=== PATIENT | male | born 1945 | race African-American/Black ===

== ENCOUNTER → 2016-10-17 | Outpatient (CLI) | payer MEDICARE ==
[2016-10-17 08:36] LABS: HEMATOCRIT 29.5 % (37.9-51.0); HEMOGLOBIN 9.4 g/dL (13.5-17.0); HGB HCT DIFFERENCE -1.3; MEAN CORPUSCULAR HEMOGLOBIN 26.5 pg (27.0-33.4); MEAN CORPUSCULAR HGB CONC 31.8 g/dL (32.0-36.0); MEAN CORPUSCULAR VOLUME 83 fl (80-97); RED BLOOD COUNT 3.54 10^6/uL (4.35-5.55); RED CELL DISTRIBUTION WIDTH 14.5 % (11.5-14.0); WHITE BLOOD COUNT 7.8 10^3/uL (4.0-10.5)
[2016-10-17 08:59] LABS: ANION GAP 13 (5-19); BLOOD UREA NITROGEN 39 mg/dL (7-20); CALCIUM 8.6 mg/dL (8.4-10.2); CARBON DIOXIDE 23 mmol/L (22-30); CHLORIDE 108 mmol/L (98-107); CREATININE RESULT 4.01 mg/dL (0.52-1.25); GLUCOSE 60 mg/dL (75-110); PHOSPHORUS 5.9 mg/dL (2.5-4.5); POTASSIUM 5.4 mmol/L (3.6-5.0); SODIUM 143.9 mmol/L (137-145)
== END ==
LOC: LAB 08:21
PROVIDERS: ATTEND Internal Medicine Nephrology
DX: E11.22 Type 2 diabetes mellitus with diabetic chronic kidney disease (principal); I12.9 Hypertensive chronic kidney disease with stage 1 through stage 4 chronic kidney disease, or unspecified chronic kidney disease; N18.4 Chronic kidney disease, stage 4 (severe); E87.5 Hyperkalemia
CPT/HCPCS: 36415; 80048; 82728; 83540; 83550; 83970; 84100; 85027

== ENCOUNTER → 2016-10-19 | Outpatient (CLI) | payer MEDICARE ==
[2016-10-19 08:00] LABS: ABSOLUTE BASOPHILS # (AUTO) 0.1 10^3/uL (0.0-0.2); ABSOLUTE EOSINOPHILS # (AUTO) 0.3 10^3/uL (0.0-0.6); ABSOLUTE LYMPHOCYTES (AUTO) 3.2 10^3/uL (0.5-4.7); ABSOLUTE MONOCYTES (AUTO) 0.8 10^3/uL (0.1-1.4); ABSOLUTE NEUT (AUTO) 4.1 10^3/uL (1.7-8.2); BASOPHILS % (AUTO) 0.6 % (0-2); EOSINOPHILS % (AUTO) 3.8 % (0-6); HEMATOCRIT 29.8 % (37.9-51.0); HEMOGLOBIN 9.5 g/dL (13.5-17.0); HGB HCT DIFFERENCE -1.3; LYMPHOCYTES % (AUTO) 37.7 % (13-45); MEAN CORPUSCULAR HEMOGLOBIN 26.7 pg (27.0-33.4); MEAN CORPUSCULAR HGB CONC 31.8 g/dL (32.0-36.0); MEAN CORPUSCULAR VOLUME 84 fl (80-97); MONOCYTES % (AUTO) 9.4 % (3-13); RED BLOOD COUNT 3.54 10^6/uL (4.35-5.55); RED CELL DISTRIBUTION WIDTH 14.7 % (11.5-14.0); SEGMENTED NEUTROPHILS % (AUTO) 48.5 % (42-78); WHITE BLOOD COUNT 8.4 10^3/uL (4.0-10.5)
[2016-10-19 08:23] LABS: ALANINE AMINOTRANSFERASE 39 U/L (21-72); ALBUMIN 4.4 g/dL (3.5-5.0); ALKALINE PHOSPHATASE 142 U/L (38-126); ANION GAP 15 (5-19); ASPARTATE AMINO TRANSFERASE 48 U/L (17-59); BILIRUBIN,TOTAL 0.5 mg/dL (0.2-1.3); BLOOD UREA NITROGEN 44 mg/dL (7-20); CALCIUM 8.8 mg/dL (8.4-10.2); CARBON DIOXIDE 20 mmol/L (22-30); CHLORIDE 108 mmol/L (98-107); CREATININE RESULT 3.94 mg/dL (0.52-1.25); GLUCOSE 131 mg/dL (75-110); POTASSIUM 5.5 mmol/L (3.6-5.0); SODIUM 142.9 mmol/L (137-145)
[2016-10-19 08:26] LABS: C-REACTIVE PROTEIN < 5.0 mg/L (<10.0)
[2016-10-19 08:49] LABS: ERYTHROCYTE SEDIMENTATION RATE 63 mm/hr (0-20)
== END ==
LOC: LAB 07:24
PROVIDERS: ATTEND Nurse Practitioner Family
DX: E11.52 Type 2 diabetes mellitus with diabetic peripheral angiopathy with gangrene (principal); E11.621 Type 2 diabetes mellitus with foot ulcer; L97.522 Non-pressure chronic ulcer of other part of left foot with fat layer exposed
CPT/HCPCS: 36415; 71020; 80053; 83036; 85025; 85652; 86140

== ENCOUNTER → 2016-10-25 | Outpatient (CLI) | payer MEDICARE ==
--- NOTE | 2016-10-25 16:39 | XCELERA REPORT ---
[address] [address] Lower Extremity Arterial Evaluation Name: RICOVERONICA JR Age: 71 yrs Gender: Male : 1945 Patient Status: Outpatient Patient Location: Study Date: 10/25/2016 01:16 PM Procedure: A color flow and duplex scan of the lower extremity arteries was performed bilaterally with velocity and waveform anaylsis. Ankle brachial indicies performed. Reason For Study: ULCER Ordering Physician: RAFIQ BARON Performed By: Sixto Godoy Measurements and Calculations Right Left DISTRICT SUPERINTENDENT PSV 115.5 117.3 cm/sec Prox PFA PSV -71.1 -105.6 cm/sec Dist SFA PSV -108.1 -109.6 cm/sec Prox Pop A PSV 99.3 101.3 cm/sec Dist VIDAL PSV 94.9 98.7 cm/sec Dist RADIO PROGRAM CHECKER PSV 125.7 132.0 cm/sec Zaid Pedis PSV 101.8 106.4 cm/sec Right Side Arterial Evaluation Normal velocity, waveform and triphasic flow are present, from the Common Femoral artery down to the infrageniculate vessels. The ankle-brachial index was not obtainable, due to non compressibility. 0 % stenosis is noted. Left Side Arterial Evaluation Normal velocity, waveform and triphasic flow are present, from the Common Femoral artery down to the infrageniculate vessels. The ankle-brachial index was not obtainable, due to non compressibility. 0 % stenosis is noted. Interpretation Summary No hemodynamically significant lesions in the bilateral lower extremities, on duplex imaging, at rest. With non compressible vessels, no significant hemodynamic compromise, arteriosclerosis is probable. : RAFIQ BARON [place]
--- NOTE | 2016-10-30 11:38 | XCELERA REPORT ---
[address] [address] Lower Extremity Venous Evaluation Name: VERONICA GÓMEZ JR Age: 71 yrs Gender: Male : 1945 Patient Status: Outpatient Patient Location: Study Date: 10/25/2016 01:26 PM Procedure: A bilateral duplex scan of the lower extremity veins was performed. The evaluation included responses to compression and other maneuvers with patient in the supine and standing positions to assess venous insufficiency. Reason For Study: ULCER Ordering Physician: RAFIQ BARON Performed By: Sixto Godoy Right Sided Venous Evaluation Deep venous system evaluatiion shows patent veins with no obstruction or significant reflux identified. Sapheno Femoral junction: no reflux. Femoral vein reflux: no reflux. Greater Saphenous vein, Proximal thigh: reflux: no reflux. Greater Saphenous vein, Distal thigh: reflux:no reflux. Greater Saphenous vein, Proximal below knee: reflux:no reflux. No significant Perforators identified. Left Sided Venous Evaluation Deep venous system evaluatiion shows patent veins with significant reflux identified. In the Common Femoral vein, 4 sconds reflux. Sapheno Femoral junction: no reflux. Femoral vein reflux: no reflux. Greater Saphenous vein, Proximal thigh: reflux: no reflux. Greater Saphenous vein, Distal thigh: reflux:no reflux. Greater Saphenous vein, Proximal below knee: reflux:no reflux. No significant Perforators identified. Interpretation Summary No duplex evidence of DVT or obstruction in the bilateral lower extremities. Very limited, left sided deep reflux only. : RAFIQ BARON [place]
== END ==
LOC: SP 12:48
PROVIDERS: ATTEND Nurse Practitioner Family
DX: E11.621 Type 2 diabetes mellitus with foot ulcer (principal); L97.522 Non-pressure chronic ulcer of other part of left foot with fat layer exposed
CPT/HCPCS: 93925; 93970

== ENCOUNTER → 2016-12-08 | Outpatient (CLI) | payer MEDICARE ==
[2016-12-08 08:33] LABS: HEMOGLOBIN 10.4 g/dL (13.5-17.0); HGB HCT DIFFERENCE -0.8; MEAN CORPUSCULAR HEMOGLOBIN 26.5 pg (27.0-33.4); MEAN CORPUSCULAR HGB CONC 32.4 g/dL (32.0-36.0); MEAN CORPUSCULAR VOLUME 82 fl (80-97); RED BLOOD COUNT 3.91 10^6/uL (4.35-5.55); RED CELL DISTRIBUTION WIDTH 14.6 % (11.5-14.0); WHITE BLOOD COUNT 7.1 10^3/uL (4.0-10.5)
[2016-12-08 09:12] LABS: ANION GAP 15 (5-19); BLOOD UREA NITROGEN 45 mg/dL (7-20); CALCIUM 9.3 mg/dL (8.4-10.2); CARBON DIOXIDE 22 mmol/L (22-30); CHLORIDE 105 mmol/L (98-107); CREATININE RESULT 3.17 mg/dL (0.52-1.25); GLUCOSE 119 mg/dL (75-110); PHOSPHORUS 4.8 mg/dL (2.5-4.5); POTASSIUM 4.3 mmol/L (3.6-5.0); SODIUM 141.9 mmol/L (137-145)
== END ==
LOC: LAB 08:19
PROVIDERS: ATTEND Internal Medicine Nephrology
DX: I12.9 Hypertensive chronic kidney disease with stage 1 through stage 4 chronic kidney disease, or unspecified chronic kidney disease (principal); N18.4 Chronic kidney disease, stage 4 (severe); E87.5 Hyperkalemia; E11.9 Type 2 diabetes mellitus without complications
CPT/HCPCS: 36415; 80048; 83970; 84100; 85027

== ENCOUNTER → 2017-03-12 | Outpatient (CLI) | payer MEDICARE ==
[2017-03-12 08:22] LABS: HEMATOCRIT 29.2 % (37.9-51.0); HEMOGLOBIN 9.3 g/dL (13.5-17.0); HGB HCT DIFFERENCE -1.3; MEAN CORPUSCULAR HEMOGLOBIN 26.7 pg (27.0-33.4); MEAN CORPUSCULAR VOLUME 84 fl (80-97); RED BLOOD COUNT 3.49 10^6/uL (4.35-5.55); RED CELL DISTRIBUTION WIDTH 14.2 % (11.5-14.0)
[2017-03-12 08:39] LABS: APPEARANCE,URINE CLEAR; BILIRUBIN,URINE NEGATIVE (NEGATIVE); GLUCOSE, URINE NEGATIVE (NEGATIVE); KETONES,URINE NEGATIVE (NEGATIVE); LEUKOCYTE ESTERASE,URINE NEGATIVE (NEGATIVE); NITRITE,URINE NEGATIVE (NEGATIVE); PROTEIN,URINE 100 mg/dL (NEGATIVE); URINE SPECIFIC GRAVITY 1.017; UROBILINOGEN,URINE NEGATIVE mg/dL (<2.0)
[2017-03-12 08:42] LABS: ANION GAP 14 (5-19); BLOOD UREA NITROGEN 52 mg/dL (7-20); CALCIUM 8.7 mg/dL (8.4-10.2); CARBON DIOXIDE 24 mmol/L (22-30); CHLORIDE 104 mmol/L (98-107); CREATININE RESULT 3.65 mg/dL (0.52-1.25); GLUCOSE 81 mg/dL (75-110); PHOSPHORUS 4.8 mg/dL (2.5-4.5); POTASSIUM 4.7 mmol/L (3.6-5.0); SODIUM 141.5 mmol/L (137-145)
== END ==
LOC: LAB 08:06
PROVIDERS: ATTEND Internal Medicine Nephrology
DX: N18.4 Chronic kidney disease, stage 4 (severe) (principal); R80.9 Proteinuria, unspecified; E87.6 Hypokalemia; D64.9 Anemia, unspecified
CPT/HCPCS: 36415; 80048; 81001; 83970; 84100; 85027

== ENCOUNTER 2017-04-02 12:55 | Emergency (ER) | payer MEDICARE ==
--- NOTE | 2017-04-02 13:59 | ER Document Report ---
ED Medical Screen (RME) - General Chief Complaint: Foot Pain Stated Complaint: LEFT FOOT PAIN Time Seen by Provider: 04/02/17 13:54 Notes: Patient is a 71-year-old male, past medical history CKD, DM, chronic left foot ulcer pain, and with worsening blisters and these coronation of his left foot after he popped the blisters. He was seen wound care for a foot ulcer, but now noticed worsening wounds. Denies discharge, fevers or injury. PE: left foot with desquamation of the dorsal surface of his first, third, fourth and fifth toes down to tendons, no discharge I have greeted and performed a rapid initial assessment of this patient. A comprehensive ED assessment and evaluation of the patient, analysis of test results and completion of the medical decision making process will be conducted by additional ED providers. TRAVEL OUTSIDE OF THE [place] IN LAST 30 DAYS: No - Related Data Allergies/Adverse Reactions: No Known Allergies Allergy (Verified 04/02/17 12:59) Past Medical History Neurological Medical History: Denies: Hx Seizures Renal/ Medical History: Denies: Hx Peritoneal Dialysis Physical Exam - Vital signs Vitals: Temp Pulse Resp BP Pulse Ox 98.3 F 93 18 174/89 H 96 04/02/17 12:59 04/02/17 12:59 04/02/17 12:59 04/02/17 12:59 04/02/17 12:59 Course - Vital Signs Vital signs: Temp Pulse Resp BP Pulse Ox 98.3 F 93 18 174/89 H 96 04/02/17 12:59 04/02/17 12:59 04/02/17 12:59 04/02/17 12:59 04/02/17 12:59
[2017-04-02 14:42] LABS: ABSOLUTE EOSINOPHILS # (AUTO) 0.8 10^3/uL (0.0-0.6); ABSOLUTE LYMPHOCYTES (AUTO) 2.2 10^3/uL (0.5-4.7); ABSOLUTE MONOCYTES (AUTO) 0.9 10^3/uL (0.1-1.4); ABSOLUTE NEUT (AUTO) 5.2 10^3/uL (1.7-8.2); BASOPHILS % (AUTO) 0.5 % (0-2); EOSINOPHILS % (AUTO) 9.1 % (0-6); HEMATOCRIT 26.6 % (37.9-51.0); HEMOGLOBIN 8.6 g/dL (13.5-17.0); HGB HCT DIFFERENCE -0.8; LYMPHOCYTES % (AUTO) 23.8 % (13-45); MEAN CORPUSCULAR HEMOGLOBIN 26.7 pg (27.0-33.4); MEAN CORPUSCULAR HGB CONC 32.1 g/dL (32.0-36.0); MEAN CORPUSCULAR VOLUME 83 fl (80-97); RED CELL DISTRIBUTION WIDTH 14.3 % (11.5-14.0); SEGMENTED NEUTROPHILS % (AUTO) 56.6 % (42-78); WHITE BLOOD COUNT 9.2 10^3/uL (4.0-10.5)
--- NOTE | 2017-04-02 14:57 | ER Document Report ---
ED Extremity Problem, Lower - General Chief Complaint: Foot Pain Stated Complaint: LEFT FOOT PAIN Time Seen by Provider: 04/02/17 13:54 Mode of Arrival: Ambulatory Information source: Patient TRAVEL OUTSIDE OF THE [place] IN LAST 30 DAYS: No - HPI Patient complains to provider of: Swelling Location: Foot Occurred: Other - several months Onset/Duration: Gradual Quality of pain: No pain Notes: Patient is a 71-year-old male with a history of chronic kidney disease, and diabetes, who presents to the emergency room complaining of chronic nonhealing wounds to his left foot, he has a callus on the plantar surface of his left great toe, he has been seen at the wound care clinic for this multiple times in the past, he states that they have debrided it multiple times, and about a month ago he stopped going because he did not feel as though he is getting any better, over the past week to week and a half he developed some blisters on the dorsal surface of his toes and distal foot, he states he used a needle to pop the blisters, they drained clear fluid, since then he has had mild erythema and swelling to this area, he denies any active drainage, no fevers, denies any pain , but he does have decreased sensation to the distal extremity related to diabetic neuropathy - Related Data Allergies/Adverse Reactions: No Known Allergies Allergy (Verified 04/02/17 12:59) Past Medical History - General Information source: Patient - Social History Smoking Status: Never Smoker Family History: Reviewed & Not Pertinent Patient has suicidal ideation: No Patient has homicidal ideation: No Neurological Medical History: Denies: Hx Seizures Renal/ Medical History: Denies: Hx Peritoneal Dialysis Review of Systems - Review of Systems Constitutional: No symptoms reported EENT: No symptoms reported Cardiovascular: No symptoms reported Respiratory: No symptoms reported Gastrointestinal: No symptoms reported Genitourinary: No symptoms reported Male Genitourinary: No symptoms reported Musculoskeletal: No symptoms reported Skin: See HPI Hematologic/Lymphatic: No symptoms reported Neurological/Psychological: No symptoms reported -: Yes All other systems reviewed and negative Physical Exam - Vital signs Vitals: Temp Pulse Resp BP Pulse Ox 98.3 F 93 18 174/89 H 96 04/02/17 12:59 04/02/17 12:59 04/02/17 12:59 04/02/17 12:59 04/02/17 12:59 Interpretation: Hypertensive - General General appearance: Appears well, Alert In distress: None - HEENT Head: Normocephalic, Atraumatic Eyes: Normal Pupils: PERRL - Respiratory Respiratory status: No respiratory distress Chest status: Nontender Breath sounds: Normal Chest palpation: Normal - Cardiovascular Rhythm: Regular Heart sounds: Normal auscultation Murmur: No - Abdominal Inspection: Normal Distension: No distension Bowel sounds: Normal Tenderness: Nontender Organomegaly: No organomegaly - Back Back: Normal, Nontender - Extremities General upper extremity: Normal inspection, Nontender, Normal color, Normal ROM , Normal temperature General lower extremity: Normal ROM, Normal temperature, Normal weight bearing. No: Kaylene's sign Foot: Other - With pinkish colored discoloration to the dorsal surface of the first through fourth toes, as well as a 2 x 4 cm area on the dorsal surface of the foot over the distal metatarsals, these are the areas that he stated he had previously had blisters which he popped with a needle and debrided himself at home, there is no tenderness, no active drainage, there is brisk capillary refill with 2+ DP pulses, he does have a callus with small area of central necrosis on the plantar surface of the great toe - Neurological Neuro grossly intact: Yes Cognition: Normal Orientation: AAOx4 Abdulaziz Coma Scale Eye Opening: Spontaneous Ararat Coma Scale Verbal: Oriented Ararat Coma Scale Motor: Obeys Commands Abdulaziz Coma Scale Total: 15 Speech: Normal Motor strength normal: LUE, RUE, LLE, RLE Sensory: Normal - Psychological Associated symptoms: Normal affect, Normal mood - Skin Skin Temperature: Warm Skin Moisture: Dry Skin Color: Normal Course - Re-evaluation Re-evalutation: 04/02/17 18:14 Imaging findings were discussed with patient at bedside which are relatively unremarkable, he is noted to have chronic kidney disease, no leukocytosis, stable vital signs, wound care was provided to his left foot, he was advised to follow-up with his primary care provider in 2-3 days or return if any additional concerns, patient and at bedside acknowledge understanding and agreement with this plan - Vital Signs Vital signs: Temp Pulse Resp BP Pulse Ox 97.6 F 103 H 20 175/94 H 96 04/02/17 15:26 04/02/17 15:26 04/02/17 15:26 04/02/17 15:26 04/02/17 15:26 - Laboratory Result Diagrams: 04/02/17 14:19 04/02/17 14:19 Laboratory results interpreted by me: 04/02/17 04/02/17 14:19 14:19 RBC 3.20 L Hgb 8.6 L Hct 26.6 L MCH 26.7 L RDW 14.3 H Plt Count 588 H Eosinophils % 9.1 H Absolute Eosinophils 0.8 H Potassium 5.4 H BUN 37 H Creatinine 3.18 H Est GFR ( Amer) 23 L Est GFR (Non-Af Amer) 19 L Glucose 147 H - Diagnostic Test Radiology reviewed: Image reviewed, Reports reviewed Discharge - Discharge Clinical Impression: Diabetic foot ulcers Qualifiers: Diabetic foot ulcer location: toe Diabetes mellitus type: type 2 Laterality: left Non-pressure ulcer stage: limited to breakdown of skin Qualified Code(s): E11.621 - Type 2 diabetes mellitus with foot ulcer Condition: Stable Disposition: HOME, SELF-CARE Instructions: Foot or Leg Ulcer ([facility]) Additional Instructions: Follow up with your primary care provider in one to 2 days. Return to the emergency room immediately if symptoms worsen or any additional concerns. Prescriptions: Doxycycline Hyclate 100 mg PO BID #20 capsule Referrals: ADY WADE MD [Primary Care Provider] - Follow up as needed
[2017-04-02 15:02] LABS: ALANINE AMINOTRANSFERASE 37 U/L (21-72); ALBUMIN 3.7 g/dL (3.5-5.0); ALKALINE PHOSPHATASE 120 U/L (38-126); ANION GAP 14 (5-19); ASPARTATE AMINO TRANSFERASE 27 U/L (17-59); BILIRUBIN,DIRECT 0.3 mg/dL (0.0-0.4); BILIRUBIN,TOTAL 0.3 mg/dL (0.2-1.3); BLOOD UREA NITROGEN 37 mg/dL (7-20); CALCIUM 8.6 mg/dL (8.4-10.2); CARBON DIOXIDE 22 mmol/L (22-30); CHLORIDE 104 mmol/L (98-107); CREATININE RESULT 3.18 mg/dL (0.52-1.25); GLUCOSE 147 mg/dL (75-110); POTASSIUM 5.4 mmol/L (3.6-5.0); SODIUM 140.3 mmol/L (137-145); TOTAL PROTEIN 7.6 g/dL (6.3-8.2)
--- NOTE | 2017-04-02 15:08 | RADIOLOGY REPORT (SQ) ---
EXAM DESCRIPTION: FOOT LEFT COMPLETE COMPLETED DATE/TIME: 04/02/2017 2:59 pm REASON FOR STUDY: left foot pain COMPARISON: 10/19/2016 NUMBER OF VIEWS: Three views. TECHNIQUE: AP, lateral and oblique radiographic images acquired of the left foot. LIMITATIONS: None. FINDINGS: MINERALIZATION: Normal. BONES: No acute fracture or dislocation. No worrisome bone lesions. JOINTS: No effusions. SOFT TISSUES: No foreign body. OTHER: No other significant finding. IMPRESSION: No evidence of osteomyelitis. TECHNICAL DOCUMENTATION: JOB ID: [id number]- All Rights Reserved
[2017-04-02] MEDS ORDERED: DOXYCYCLINE HYCLATE 100 MG TABLET PO ONE (15:13)
[2017-04-02 15:32] VITALS: BP 175/94
== END 2017-04-02 15:30 | disposition home or self-care (01) ==
LOC: ER 12:55
DX: E11.621 Type 2 diabetes mellitus with foot ulcer (principal); M79.672 Pain in left foot; E11.22 Type 2 diabetes mellitus with diabetic chronic kidney disease; N18.9 Chronic kidney disease, unspecified
CPT/HCPCS: 99283; 36415; 87040; 85025; 80053; 83605; 73630; A9270

== ENCOUNTER → 2017-06-11 | Outpatient (CLI) | payer MEDICARE ==
[2017-06-11 08:40] LABS: HEMATOCRIT 30.1 % (37.9-51.0); HEMOGLOBIN 9.7 g/dL (13.5-17.0); MEAN CORPUSCULAR HGB CONC 32.1 g/dL (32.0-36.0); MEAN CORPUSCULAR VOLUME 84 fl (80-97); RED BLOOD COUNT 3.57 10^6/uL (4.35-5.55); RED CELL DISTRIBUTION WIDTH 15.1 % (11.5-14.0); WHITE BLOOD COUNT 6.5 10^3/uL (4.0-10.5)
[2017-06-11 08:42] LABS: APPEARANCE,URINE CLEAR; BILIRUBIN,URINE NEGATIVE (NEGATIVE); GLUCOSE, URINE NEGATIVE (NEGATIVE); KETONES,URINE NEGATIVE (NEGATIVE); LEUKOCYTE ESTERASE,URINE TRACE (NEGATIVE); NITRITE,URINE NEGATIVE (NEGATIVE); PROTEIN,URINE 100 mg/dL (NEGATIVE); URINE SPECIFIC GRAVITY 1.014; UROBILINOGEN,URINE NEGATIVE mg/dL (<2.0)
[2017-06-11 09:07] LABS: ANION GAP 13 (5-19); BLOOD UREA NITROGEN 39 mg/dL (7-20); CALCIUM 9.4 mg/dL (8.4-10.2); CARBON DIOXIDE 24 mmol/L (22-30); CHLORIDE 105 mmol/L (98-107); CREATININE RESULT 3.05 mg/dL (0.52-1.25); GLUCOSE 95 mg/dL (75-110); MAGNESIUM 2.5 mg/dL (1.6-2.3); PHOSPHORUS 5.2 mg/dL (2.5-4.5); POTASSIUM 4.8 mmol/L (3.6-5.0); SODIUM 142.3 mmol/L (137-145)
[2017-06-11 09:15] LABS: URINE CREATININE 215.9 mg/dL (22-328); URINE PROTEIN 147.7 mg/dL (<12)
== END ==
LOC: LAB 08:09
PROVIDERS: ATTEND Internal Medicine Nephrology
DX: N18.4 Chronic kidney disease, stage 4 (severe) (principal); D64.9 Anemia, unspecified; E87.5 Hyperkalemia
CPT/HCPCS: 36415; 80048; 81001; 82570; 82728; 83540; 83550; 83735; 83970; 84100; 84156; 84443; 85027

== ENCOUNTER → 2017-09-04 | Outpatient (CLI) | payer MEDICARE ==
[2017-09-04 09:08] LABS: HEMATOCRIT 26.1 % (37.9-51.0); HEMOGLOBIN 8.5 g/dL (13.5-17.0); HGB HCT DIFFERENCE -0.6; MEAN CORPUSCULAR HGB CONC 32.8 g/dL (32.0-36.0); MEAN CORPUSCULAR VOLUME 82 fl (80-97); RED BLOOD COUNT 3.16 10^6/uL (4.35-5.55); RED CELL DISTRIBUTION WIDTH 15.7 % (11.5-14.0); WHITE BLOOD COUNT 5.6 10^3/uL (4.0-10.5)
[2017-09-04 09:26] LABS: APPEARANCE,URINE CLEAR; BILIRUBIN,URINE NEGATIVE (NEGATIVE); GLUCOSE, URINE NEGATIVE (NEGATIVE); KETONES,URINE NEGATIVE (NEGATIVE); LEUKOCYTE ESTERASE,URINE NEGATIVE (NEGATIVE); NITRITE,URINE NEGATIVE (NEGATIVE); PROTEIN,URINE >=500 mg/dL (NEGATIVE); URINE SPECIFIC GRAVITY 1.014; UROBILINOGEN,URINE NEGATIVE mg/dL (<2.0)
[2017-09-04 09:40] LABS: BACTERIA,URINE 1+ /HPF; WBC,URINE 0-1 /HPF
[2017-09-04 09:46] LABS: ANION GAP 14 (5-19); BLOOD UREA NITROGEN 48 mg/dL (7-20); CARBON DIOXIDE 22 mmol/L (22-30); CHLORIDE 107 mmol/L (98-107); CREATININE RESULT 3.11 mg/dL (0.52-1.25); GLUCOSE 145 mg/dL (75-110); PHOSPHORUS 5.1 mg/dL (2.5-4.5); POTASSIUM 4.6 mmol/L (3.6-5.0); SODIUM 142.6 mmol/L (137-145)
[2017-09-04 09:58] LABS: URINE PROTEIN 152.2 mg/dL (<12)
== END ==
LOC: LAB 08:50
PROVIDERS: ATTEND Internal Medicine Nephrology
DX: N18.4 Chronic kidney disease, stage 4 (severe) (principal); E87.5 Hyperkalemia; D64.9 Anemia, unspecified; R50.9 Fever, unspecified
CPT/HCPCS: 36415; 80048; 81001; 82570; 83970; 84100; 84156; 85027

== ENCOUNTER → 2017-09-28 | Outpatient (CLI) | payer MEDICARE ==
[2017-09-28 08:30] LABS: HEMATOCRIT 28.2 % (37.9-51.0); MEAN CORPUSCULAR HEMOGLOBIN 26.4 pg (27.0-33.4); MEAN CORPUSCULAR VOLUME 82 fl (80-97); PLATELET COUNT 475 10^3/uL (150-450); RED BLOOD COUNT 3.43 10^6/uL (4.35-5.55); RED CELL DISTRIBUTION WIDTH 16.2 % (11.5-14.0); WHITE BLOOD COUNT 7.8 10^3/uL (4.0-10.5)
[2017-09-28 08:53] LABS: ANION GAP 14 (5-19); BLOOD UREA NITROGEN 48 mg/dL (7-20); CALCIUM 9.3 mg/dL (8.4-10.2); CARBON DIOXIDE 21 mmol/L (22-30); CHLORIDE 107 mmol/L (98-107); GLUCOSE 92 mg/dL (75-110); IRON(TIBC) 48.4 ug/dL (49-181); POTASSIUM 4.8 mmol/L (3.6-5.0); SODIUM 141.7 mmol/L (137-145)
== END ==
LOC: LAB 08:16
PROVIDERS: ATTEND Internal Medicine Nephrology
DX: I12.9 Hypertensive chronic kidney disease with stage 1 through stage 4 chronic kidney disease, or unspecified chronic kidney disease (principal); N18.4 Chronic kidney disease, stage 4 (severe); R80.9 Proteinuria, unspecified; E11.9 Type 2 diabetes mellitus without complications; E87.5 Hyperkalemia; D64.9 Anemia, unspecified
CPT/HCPCS: 36415; 80048; 82728; 83540; 83550; 84443; 85027

== ENCOUNTER → 2018-01-17 | Outpatient (CLI) | payer MEDICARE ==
[2018-01-17 08:21] LABS: HEMOGLOBIN 10.7 g/dL (13.5-17.0); MEAN CORPUSCULAR HEMOGLOBIN 26.8 pg (27.0-33.4); MEAN CORPUSCULAR HGB CONC 32.5 g/dL (32.0-36.0); MEAN CORPUSCULAR VOLUME 83 fl (80-97); PLATELET COUNT 377 10^3/uL (150-450); RED CELL DISTRIBUTION WIDTH 15.5 % (11.5-14.0)
[2018-01-17 08:47] LABS: ANION GAP 14 (5-19); BLOOD UREA NITROGEN 56 mg/dL (7-20); CALCIUM 9.3 mg/dL (8.4-10.2); CARBON DIOXIDE 20 mmol/L (22-30); CHLORIDE 108 mmol/L (98-107); GLUCOSE 98 mg/dL (75-110); PHOSPHORUS 5.9 mg/dL (2.5-4.5); POTASSIUM 5.2 mmol/L (3.6-5.0); SODIUM 142.2 mmol/L (137-145)
== END ==
LOC: LAB 08:05
PROVIDERS: ATTEND Internal Medicine Nephrology
DX: N18.4 Chronic kidney disease, stage 4 (severe) (principal); D64.9 Anemia, unspecified; R80.9 Proteinuria, unspecified
CPT/HCPCS: 36415; 80048; 83970; 84100; 85027

== ENCOUNTER → 2018-05-20 | Outpatient (CLI) | payer MEDICARE ==
[2018-05-20 09:21] LABS: HEMATOCRIT 29.6 % (37.9-51.0); HEMOGLOBIN 9.8 g/dL (13.5-17.0); MEAN CORPUSCULAR HEMOGLOBIN 27.3 pg (27.0-33.4); MEAN CORPUSCULAR VOLUME 83 fl (80-97); PLATELET COUNT 386 10^3/uL (150-450); RED BLOOD COUNT 3.58 10^6/uL (4.35-5.55); RED CELL DISTRIBUTION WIDTH 13.8 % (11.5-14.0); WHITE BLOOD COUNT 6.9 10^3/uL (4.0-10.5)
[2018-05-20 09:29] LABS: APPEARANCE,URINE SLIGHTLY-CLOUDY; BILIRUBIN,URINE NEGATIVE (NEGATIVE); COLOR,URINE YELLOW; GLUCOSE, URINE NEGATIVE (NEGATIVE); KETONES,URINE NEGATIVE (NEGATIVE); LEUKOCYTE ESTERASE,URINE SMALL (NEGATIVE); NITRITE,URINE NEGATIVE (NEGATIVE); PROTEIN,URINE 100 mg/dL (NEGATIVE); URINE SPECIFIC GRAVITY 1.017; UROBILINOGEN,URINE NEGATIVE mg/dL (<2.0)
[2018-05-20 09:51] LABS: ANION GAP 12 (5-19); BLOOD UREA NITROGEN 50 mg/dL (7-20); CARBON DIOXIDE 22 mmol/L (22-30); CHLORIDE 109 mmol/L (98-107); GLUCOSE 135 mg/dL (75-110); IRON(TIBC) 49.3 ug/dL (49-181); PHOSPHORUS 4.8 mg/dL (2.5-4.5); POTASSIUM 4.9 mmol/L (3.6-5.0); SODIUM 143.2 mmol/L (137-145)
== END ==
LOC: LAB 08:54
PROVIDERS: ATTEND Internal Medicine Nephrology
DX: N18.4 Chronic kidney disease, stage 4 (severe) (principal); D64.9 Anemia, unspecified; E87.5 Hyperkalemia; R80.9 Proteinuria, unspecified
CPT/HCPCS: 36415; 80048; 81001; 82728; 83540; 83550; 83970; 84100; 85027

== ENCOUNTER → 2018-09-10 | Outpatient (CLI) | payer MEDICARE ==
[2018-09-10 09:20] LABS: HEMATOCRIT 31.2 % (37.9-51.0); HEMOGLOBIN 10.1 g/dL (13.5-17.0); MEAN CORPUSCULAR HEMOGLOBIN 26.4 pg (27.0-33.4); MEAN CORPUSCULAR HGB CONC 32.4 g/dL (32.0-36.0); MEAN CORPUSCULAR VOLUME 82 fl (80-97); PLATELET COUNT 386 10^3/uL (150-450); RED BLOOD COUNT 3.83 10^6/uL (4.35-5.55); RED CELL DISTRIBUTION WIDTH 15.5 % (11.5-14.0); WHITE BLOOD COUNT 5.4 10^3/uL (4.0-10.5)
[2018-09-10 09:25] LABS: APPEARANCE,URINE CLOUDY; BILIRUBIN,URINE NEGATIVE (NEGATIVE); COLOR,URINE YELLOW; GLUCOSE, URINE NEGATIVE (NEGATIVE); KETONES,URINE NEGATIVE (NEGATIVE); LEUKOCYTE ESTERASE,URINE MODERATE (NEGATIVE); NITRITE,URINE NEGATIVE (NEGATIVE); PROTEIN,URINE >=500 mg/dL (NEGATIVE); URINE SPECIFIC GRAVITY 1.015; UROBILINOGEN,URINE NEGATIVE mg/dL (<2.0)
[2018-09-10 09:39] LABS: ANION GAP 12 (5-19); BLOOD UREA NITROGEN 39 mg/dL (7-20); CALCIUM 9.2 mg/dL (8.4-10.2); CARBON DIOXIDE 23 mmol/L (22-30); CHLORIDE 108 mmol/L (98-107); GLUCOSE 136 mg/dL (75-110); PHOSPHORUS 4.7 mg/dL (2.5-4.5); POTASSIUM 4.4 mmol/L (3.6-5.0); SODIUM 143.4 mmol/L (137-145)
== END ==
LOC: LAB 08:51
PROVIDERS: ATTEND Internal Medicine Nephrology
DX: N18.4 Chronic kidney disease, stage 4 (severe) (principal); D64.9 Anemia, unspecified; E87.5 Hyperkalemia; R80.9 Proteinuria, unspecified
CPT/HCPCS: 36415; 80048; 81001; 83970; 84100; 85027

== ENCOUNTER → 2019-02-04 | Outpatient (CLI) | payer MEDICARE ==
[2019-02-04 08:46] LABS: ABSOLUTE EOSINOPHILS # (AUTO) 0.2 10^3/uL (0.0-0.6); ABSOLUTE LYMPHOCYTES (AUTO) 2.8 10^3/uL (0.5-4.7); ABSOLUTE MONOCYTES (AUTO) 0.8 10^3/uL (0.1-1.4); ABSOLUTE NEUT (AUTO) 3.5 10^3/uL (1.7-8.2); BASOPHILS % (AUTO) 0.6 % (0-2); EOSINOPHILS % (AUTO) 3.3 % (0-6); HEMATOCRIT 30.8 % (37.9-51.0); LYMPHOCYTES % (AUTO) 38.5 % (13-45); MEAN CORPUSCULAR HEMOGLOBIN 27.3 pg (27.0-33.4); MEAN CORPUSCULAR HGB CONC 32.6 g/dL (32.0-36.0); MEAN CORPUSCULAR VOLUME 84 fl (80-97); MONOCYTES % (AUTO) 10.4 % (3-13); PLATELET COUNT 353 10^3/uL (150-450); RED BLOOD COUNT 3.67 10^6/uL (4.35-5.55); RED CELL DISTRIBUTION WIDTH 14.6 % (11.5-14.0); SEGMENTED NEUTROPHILS % (AUTO) 47.2 % (42-78); TOTAL CELLS COUNTED % (AUTO) 100 %; WHITE BLOOD COUNT 7.4 10^3/uL (4.0-10.5)
[2019-02-04 08:54] LABS: APPEARANCE,URINE SLIGHTLY-CLOUDY; BILIRUBIN,URINE NEGATIVE (NEGATIVE); COLOR,URINE YELLOW; GLUCOSE, URINE NEGATIVE (NEGATIVE); KETONES,URINE NEGATIVE (NEGATIVE); LEUKOCYTE ESTERASE,URINE MODERATE (NEGATIVE); NITRITE,URINE NEGATIVE (NEGATIVE); PROTEIN,URINE 100 mg/dL (NEGATIVE); UROBILINOGEN,URINE NEGATIVE mg/dL (<2.0)
[2019-02-04 09:18] LABS: UR PRO/CREAT RATIO RESULT 0.7 mg/mg (0.0-0.2); URINE CREATININE 254.3 mg/dL (22-328); URINE PROTEIN 168.6 mg/dL (<12)
[2019-02-04 09:31] LABS: ANION GAP 14 (5-19); BLOOD UREA NITROGEN 48 mg/dL (7-20); CALCIUM 9.2 mg/dL (8.4-10.2); CARBON DIOXIDE 23 mmol/L (22-30); CHLORIDE 108 mmol/L (98-107); GLUCOSE 93 mg/dL (75-110); PHOSPHORUS 6.5 mg/dL (2.5-4.5); POTASSIUM 5.1 mmol/L (3.6-5.0); SODIUM 144.5 mmol/L (137-145)
== END ==
LOC: LAB 08:28
PROVIDERS: ATTEND Internal Medicine Nephrology
DX: E11.22 Type 2 diabetes mellitus with diabetic chronic kidney disease (principal); D63.1 Anemia in chronic kidney disease; N18.4 Chronic kidney disease, stage 4 (severe); R80.9 Proteinuria, unspecified
CPT/HCPCS: 36415; 80048; 81001; 82570; 83970; 84100; 84156; 85025

== ENCOUNTER → 2019-04-07 | Outpatient (CLI) | payer MEDICARE ==
[2019-04-07 09:06] LABS: HEMATOCRIT 32.9 % (37.9-51.0); HEMOGLOBIN 10.6 g/dL (13.5-17.0); MEAN CORPUSCULAR HEMOGLOBIN 26.6 pg (27.0-33.4); MEAN CORPUSCULAR HGB CONC 32.1 g/dL (32.0-36.0); MEAN CORPUSCULAR VOLUME 83 fl (80-97); PLATELET COUNT 365 10^3/uL (150-450); RED BLOOD COUNT 3.97 10^6/uL (4.35-5.55); RED CELL DISTRIBUTION WIDTH 14.1 % (11.5-14.0); WHITE BLOOD COUNT 6.3 10^3/uL (4.0-10.5)
[2019-04-07 09:35] LABS: ANION GAP 13 (5-19); BLOOD UREA NITROGEN 42 mg/dL (7-20); CALCIUM 9.9 mg/dL (8.4-10.2); CARBON DIOXIDE 23 mmol/L (22-30); CHLORIDE 103 mmol/L (98-107); GLUCOSE 194 mg/dL (75-110); IRON(TIBC) 73.7 ug/dL (49-181); POTASSIUM 4.9 mmol/L (3.6-5.0); SODIUM 138.8 mmol/L (137-145)
== END ==
LOC: LAB 08:37
PROVIDERS: ATTEND Internal Medicine Nephrology
DX: I12.9 Hypertensive chronic kidney disease with stage 1 through stage 4 chronic kidney disease, or unspecified chronic kidney disease (principal); N18.4 Chronic kidney disease, stage 4 (severe); R80.9 Proteinuria, unspecified; D64.9 Anemia, unspecified
CPT/HCPCS: 36415; 80048; 82728; 83540; 83550; 83735; 83970; 84100; 85027

== ENCOUNTER 2019-05-15 02:09 | Observation (INO) | payer MEDICARE ==
[2019-05-15 03:23] LABS: ABSOLUTE EOSINOPHILS # (AUTO) 0.1 10^3/uL (0.0-0.6); ABSOLUTE MONOCYTES (AUTO) 0.7 10^3/uL (0.1-1.4); ABSOLUTE NEUT (AUTO) 2.8 10^3/uL (1.7-8.2); BASOPHILS % (AUTO) 0.3 % (0-2); EOSINOPHILS % (AUTO) 2.2 % (0-6); HEMATOCRIT 25.8 % (37.9-51.0); HEMOGLOBIN 8.2 g/dL (13.5-17.0); MEAN CORPUSCULAR HEMOGLOBIN 26.8 pg (27.0-33.4); MEAN CORPUSCULAR HGB CONC 31.9 g/dL (32.0-36.0); MEAN CORPUSCULAR VOLUME 84 fl (80-97); MONOCYTES % (AUTO) 14.7 % (3-13); PLATELET COUNT 308 10^3/uL (150-450); RED BLOOD COUNT 3.07 10^6/uL (4.35-5.55); RED CELL DISTRIBUTION WIDTH 14.7 % (11.5-14.0); SEGMENTED NEUTROPHILS % (AUTO) 60.8 % (42-78); TOTAL CELLS COUNTED % (AUTO) 100 %; WHITE BLOOD COUNT 4.6 10^3/uL (4.0-10.5)
[2019-05-15] MEDS ORDERED: DEXTROSE 50%-WATER 25 GM/50 ML DISP.SYRIN IV ONE (03:29)
[2019-05-15] MEDS ORDERED: DEXTROSE 5%-NORMAL SALINE 1,000 ML IV ONE (03:29)
[2019-05-15 03:33] LABS: ALBUMIN 3.3 g/dL (3.5-5.0); ALKALINE PHOSPHATASE 76 U/L (38-126); ANION GAP 10 (5-19); ASPARTATE AMINO TRANSFERASE 27 U/L (17-59); BILIRUBIN,DIRECT 0.2 mg/dL (0.0-0.4); BILIRUBIN,TOTAL 0.2 mg/dL (0.2-1.3); BLOOD UREA NITROGEN 54 mg/dL (7-20); CALCIUM 8.3 mg/dL (8.4-10.2); CARBON DIOXIDE 23 mmol/L (22-30); CHLORIDE 106 mmol/L (98-107); GLUCOSE 87 mg/dL (75-110); POTASSIUM 4.3 mmol/L (3.6-5.0); TOTAL PROTEIN 6.1 g/dL (6.3-8.2)
[2019-05-15 03:47] LABS: AMORPHOUS SEDIMENT,URINE TRACE /HPF; APPEARANCE,URINE CLOUDY; BILIRUBIN,URINE NEGATIVE (NEGATIVE); CALCIUM OXALATE CRYSTALS,URINE FEW /HPF; COLOR,URINE YELLOW; GLUCOSE, URINE 50 mg/dL (NEGATIVE); KETONES,URINE NEGATIVE (NEGATIVE); LEUKOCYTE ESTERASE,URINE SMALL (NEGATIVE); NITRITE,URINE NEGATIVE (NEGATIVE); PROTEIN,URINE 100 mg/dL (NEGATIVE); URINE SPECIFIC GRAVITY 1.013; UROBILINOGEN,URINE NEGATIVE mg/dL (<2.0)
[2019-05-15 03:49] LABS: FREE T4 (FREE THYROXINE) 1.31 ng/dL (0.78-2.19)
[2019-05-15 04:02] LABS: CREATINE KINASE MB 1.45 ng/mL (<4.55); TROPONIN I 0.021 ng/mL
[2019-05-15 04:03] LABS: THYROID STIMULATING HORMONE 1.61 uIU/mL (0.47-4.68)
--- NOTE | 2019-05-15 04:30 | RADIOLOGY REPORT (SQ) ---
EXAM DESCRIPTION: CT HEAD WITHOUT IV CONTRAST COMPLETED DATE/TME: 05/15/2019 02:56 CLINICAL HISTORY: 73 years Male, altered LOC, headache COMPARISON: None. TECHNIQUE: No contrast. Coronal and sagittal reformat. This exam was performed according to our departmental dose-optimization program, which includes automated exposure control, adjustment of the mA and/or kV according to patient size and/or use of iterative reconstruction technique. FINDINGS: No hemorrhage or infarct. No mass, mass effect, or midline shift. Atherosclerosis. Senescent globus pallidus calcifications. Brain and extra-axial structures appear otherwise intact. IMPRESSION: No acute findings.
--- NOTE | 2019-05-15 05:02 | RADIOLOGY REPORT (SQ) ---
EXAM DESCRIPTION: XR CHEST 1 VIEW COMPLETED DATE/TME: 05/15/2019 02:56 CLINICAL HISTORY: 73 years Male, cough COMPARISON:10/19/2016 NUMBER OF VIEWS/TECHNIQUE: 1/AP FINDINGS: Moderate lung volume, small left basilar atelectasis or scar, pulmonary vascular congestion, normal cardiac silhouette, and intact bony thorax. IMPRESSION: Pulmonary vascular congestion.
[2019-05-15] MEDS ORDERED: PIPERACILLIN/TAZOBACTAM 3.375 GM VIAL IV ONE (05:05)
[2019-05-15 05:12] LABS: INTERNATIONAL RATION (INR) 0.98
--- NOTE | 2019-05-15 05:28 | ER Document Report ---
ED General - General Chief Complaint: Altered Mental Status Stated Complaint: ALTERED MENTAL STATUS Time Seen by Provider: 05/15/19 02:37 Primary Care Provider: ADY WADE MD [Primary Care Provider] - Follow up as needed Mode of Arrival: Medic Information source: Patient, Relative TRAVEL OUTSIDE OF THE [place] IN LAST 30 DAYS: No - HPI Notes: Patient is a 73-year-old male, insulin-dependent diabetic, with history of pro state cancer in remission and chronic incontinence usually wears a condom catheter, stage IV kidney disease, hypertension presents to the emergency department with report of hypoglycemia which was observed by family who saw that he was slightly altered and reporting a headache. They gave the patient orange juice but he became somewhat delirious and they called for EMS that found his blood sugar to be 31. Patient was given 1 amp of D50 but after this he became somewhat agitated and refused to come in the hospital. EMS gave the patient 2.5 mg of Versed and 10 mg of Haldol. The patient arrived somnolent responsive to painful stimuli initially. Initial temperature rectally was 89 and blood sugar had recovered after the initial D50 into the 80s, but shortly after arrival a repeat blood sugar was 52. Family reported minimal congestion recently, but otherwise stated that the patient had been doing well. No skin breakdown. No vomiting or diarrhea. No change in his urine output or chronic incontinence. No head injury. - Related Data Allergies/Adverse Reactions: No Known Allergies Allergy (Verified 04/02/17 12:59) Past Medical History - General Information source: Patient, Relative - Social History Smoking Status: Never Smoker Frequency of alcohol use: None Drug Abuse: None Lives with: Family Family History: Reviewed & Not Pertinent Patient has suicidal ideation: No Patient has homicidal ideation: No Neurological Medical History: Denies: Hx Seizures Endocrine Medical History: Reports: Hx Diabetes Mellitus Type 2 Renal/ Medical History: Denies: Hx Peritoneal Dialysis Review of Systems - Review of Systems -: Yes All other systems reviewed and negative Physical Exam - Vital signs Vitals: Resp BP Pulse Ox 15 86/56 L 96 05/15/19 02:17 05/15/19 02:17 05/15/19 02:17 - Notes Notes: PHYSICAL EXAMINATION: GENERAL: Thin, somnolent. HEAD: Atraumatic, normocephalic. EYES: Pupils equal round and reactive to light, extraocular movements intact, sclera anicteric, conjunctiva are normal. ENT: Nares patent, oropharynx clear without exudates. Somewhat dry mucous membranes. NECK: Normal range of motion, supple without lymphadenopathy. LUNGS: Breath sounds clear to auscultation bilaterally and equal. No wheezes rales or rhonchi. HEART: Bradycardic averaging heart rate in the 50s, irregular rate. Atrial fibrillation noted on the monitor. ABDOMEN: Soft, nontender, nondistended abdomen. No guarding, no rebound. No masses appreciated. Musculoskeletal: Normal range of motion, no pitting or edema. No cyanosis. NEUROLOGICAL: Neurologic exam performed later on the patient when he had awakened from sedative effects and his blood sugar was recovered and temperature improved showed no focal unilateral motor or sensory deficit, and the patient recovered to being alert to person place and year. No gross ataxia or cranial nerve deficits. PSYCH: Somnolent but arousable to painful stimuli initially, later to verbal stimuli. SKIN: Warm, Dry, normal turgor, no rashes or lesions noted. Course - Re-evaluation Re-evalutation: 05/15/19 06:02 Patient initially was hypoglycemic with blood sugar of 52 despite the 1 amp of D50 that had been given. Rectal temperature was 89. The patient was given 1 amp of D50 and then started on D5 normal saline. The fluids were warmed, and the patient was placed upon a Robbie hugger blanket for his hypothermia. A indwelling Ramirez catheter was placed with a temperature probe for constant m onitoring and blood sugar improved to 188 and patient's temperature gradually improved up to 92. Blood cultures and a urine culture were taken on the patient prior to the patient receiving IV Zosyn. Urinalysis was somewhat equivocal for UTI, and chest x-ray on my interpretation showed poor inspiratory effort with some left basilar atelectasis but could not exclude pneumonia. Initial blood pressures were in the 90s systolic, but they improved with rewarming and gentle rehydration to repeat blood pressure 141/70 at 0607. Atrial fibrillation was of a new onset, but may be related to patient's hypothermia. Heart rate overall improved and to average ventricular response in the 70s. Patient's chronic renal insufficiency was unchanged with creatinine 3.5. Previous creatinine was 3.7. Patient also was noted to have a mild anemia which may be secondary to his chronic kidney disease. A stool guaiac was requested. Head CT was negative, and patient gradually became more neurologically intact and alert and oriented x3. No focal unilateral deficits were identified. 05/15/19 06:03 Discussion was undertaken with the patient and his family and they were in agreement with admission for further evaluation and management. Discussion was undertaken with Dr. Wade who agreed to admit the patient. Patient will need gradual rewarming and blood sugar management and further care. He will be covered with antibiotics pending culture results. Lactic acid per EMS in the field was 3.4, but after arrival was 2.1. This may be only related to the patient's hypoglycemic episode, but antibiotics have been given which could cover for possible sepsis. 05/15/19 06:05 - Vital Signs Vital signs: Temp Pulse Resp BP Pulse Ox 90.2 F L 15 141/90 H 99 05/15/19 04:51 05/15/19 04:51 05/15/19 04:51 05/15/19 04:51 - Laboratory Result Diagrams: 05/15/19 02:25 05/15/19 02:25 Laboratory results interpreted by me: 05/15/19 05/15/19 05/15/19 02:25 02:25 02:25 RBC 3.07 L Hgb 8.2 L Hct 25.8 L MCH 26.8 L MCHC 31.9 L RDW 14.7 H Monocytes % 14.7 H BUN 54 H Creatinine 3.47 H Est GFR ( Amer) 21 L Est GFR (Non-Af Amer) 17 L POC Glucose Calcium 8.3 L Magnesium 2.7 H Creatine Kinase 253 H Total Protein 6.1 L Albumin 3.3 L Lipase 17.5 L Urine Protein Urine Glucose (UA) Ur Leukocyte Esterase 05/15/19 05/15/19 05/15/19 03:00 03:20 04:24 RBC Hgb Hct MCH MCHC RDW Monocytes % BUN Creatinine Est GFR ( Amer) Est GFR (Non-Af Amer) POC Glucose 52 L 188 H Calcium Magnesium Creatine Kinase Total Protein Albumin Lipase Urine Protein 100 H Urine Glucose (UA) 50 H Ur Leukocyte Esterase SMALL H - EKG Interpretation by Me Rhythm: A.Fib Additional EKG results interpreted by me: 05/15/19 06:01 EKG is interpreted by me showed atrial fibrillation with heart rate of 52 irregular. There was no gross evidence for acute FL or ischemia noted. No old EKG available for comparison. Critical Care Note - Critical Care Note Total time excluding time spent on procedures (mins): 56 Discharge - Discharge Clinical Impression: Urinary tract infection Qualifiers: Urinary tract infection type: acute cystitis Hematuria presence: without hematuria Qualified Code(s): N30.00 - Acute cystitis without hematuria Atrial fibrillation Qualifiers: Atrial fibrillation type: unspecified Qualified Code(s): I48.91 - Unspecified atrial fibrillation Hypothermia Qualifiers: Encounter type: initial encounter Qualified Code(s): T68.XXXA - Hypothermia, initial encounter Hypotension Qualifiers: Hypotension type: unspecified hypotension type Qualified Code(s): I95.9 - Hypotension, unspecified Chronic kidney disease (CKD) Qualifiers: Chronic kidney disease stage: stage 4 (severe) Qualified Code(s): N18.4 - Chronic kidney disease, stage 4 (severe) Condition: Fair Disposition: ADMITTED INPATIENT Admitting Provider: Joshua Unit Admitted: [facility] Referrals: ADY WADE MD [Primary Care Provider] - Follow up as needed
[2019-05-15] MEDS: HEPARIN SOD (PORCINE) 5,000 UNIT/ML 1 ML VIAL SUBCUT SCH ×3 (08:19→21:22)
[2019-05-15 09:50] LABS: INTERNATIONAL RATION (INR) 1.01; PARTIAL THROMBOPLASTIN TIME 28.4 SEC (23.5-35.8); PROTHROMBIN TIME 13.3 SEC (11.4-15.4)
[2019-05-15] MEDS: CEFTRIAXONE SODIUM 1,000 MG in DEXTROSE 5%-WATER 50 ML IV SCH (09:50)
[2019-05-15] MEDS ORDERED: CEFTRIAXONE 1 GM/D5W RTU 1 GM/50 ML RTUPB IV SCH (10:00)
[2019-05-15 10:15] LABS: CREATINE KINASE MB 3.17 ng/mL (<4.55); TROPONIN I 0.043 ng/mL
[2019-05-15 10:15] LABS: URINE AMPHETAMINES SCREEN NEGATIVE; URINE BARBITURATES SCREEN NEGATIVE; URINE COCAINE SCREEN NEGATIVE; URINE MARIJUANA (THC) SCREEN NEGATIVE; URINE METHADONE SCREEN NEGATIVE; URINE PHENCYCLIDINE SCREEN NEGATIVE
[2019-05-15 10:16] LABS: FREE T4 (FREE THYROXINE) 1.38 ng/dL (0.78-2.19)
[2019-05-15 10:17] LABS: URINE BENZODIAZEPINES SCREEN UNCONFIRMED POSITIVE
[2019-05-15 10:30] LABS: THYROID STIMULATING HORMONE 1.19 uIU/mL (0.47-4.68)
--- NOTE | 2019-05-15 10:59 | EKG REPORT ---
SEVERITY:- ABNORMAL ECG - ATRIAL FIBRILLATION IVCD, CONSIDER ATYPICAL RBBB : Confirmed by: Caroline Ortega 15-May-2019 10:57:55
[2019-05-15] MEDS ORDERED: (PENDING PHARMACY ID) (Nifedipine [Nifedipine Er] 120 MG) PO SCH (17:30)
[2019-05-15] MEDS ORDERED: (PENDING PHARMACY ID) (Ammonium Lactate 1 APPLIC) TP SCH (18:00)
[2019-05-15] MEDS ORDERED: MUPIROCIN 2% OINTMENT 22 GM TP SCH (18:00)
[2019-05-15] MEDS ORDERED: (PENDING PHARMACY ID) (Hydralazine Hcl [Hydralazine Hcl] 100 MG) PO SCH (18:00)
[2019-05-15] MEDS ORDERED: AMMONIUM LACTATE 12% LOTION 225GM BOTTLE TP SCH (18:00)
[2019-05-15] MEDS ORDERED: INSULIN LISPRO 100 UNIT/ML 3 ML VIAL SUBCUT SCH (18:00)
[2019-05-15] MEDS ORDERED: INSULIN LISPRO 5 UNIT SQ SCH (18:00)
[2019-05-15] MEDS: FERROUS SULFATE 325 MG TABLET PO SCH (18:14)
[2019-05-15] MEDS: SODIUM BICARBONATE 650 MG TABLET PO SCH (18:14)
[2019-05-15] MEDS: CALCITRIOL 0.25 MCG CAPSULE PO SCH (20:35)
[2019-05-15 20:53] LABS: CREATINE KINASE MB 2.36 ng/mL (<4.55); TROPONIN I 0.055 ng/mL
--- NOTE | 2019-05-15 21:02 | PDOC H&P ---
History of Present Illness Admission Date/PCP: 05/15/19 06:26 ADY WADE MD History of Present Illness: VERONICA GÓMEZ is a 73 year old male, He was brought to the emergency room for evaluation of confusion, he was found to be hypoglycemic, the POC Accu-Chek was in the low 30s he was treated with 10% dextrose, despite treatment he remained confused in the emergency room. He also was found to be hypothermic, the rectal temperature was 89, he has multiple comorbid condition including diabetes mellitus complicated with chronic kidney disease stage IV, history of prostate cancer in remission, hypertension. Because of the persistent hypoglycemia and also the hypothymia hospital admission was advised. Patient is admitted into the intermediate care unit there is no particular source for sepsis, the etiology of the hypothermia is not particularly clear not sure if is related to the hypoglycemia or if this is from infection, there is no evidence of pneumonia, uses condom catheter at home because of chronic urinary incontinence, this could also be a factor in the etiology of the potential infection.Patient has been very uncooperative with the nurses, refusing care, refusing medication refusing vital signs check I saw him on the floor is alert but his behavior is out of character advised him to stay at least for 24 hours because of this severe hypothymia not regularly sure the etiology of that Past Medical History Cardiac Medical History: Reports: Coronary Artery Disease, Hypertension, Peripheral Vascular Disease Endocrine Medical History: Reports: Diabetes Mellitus Type 2 Renal/ Medical History: Reports: Other - Chronic kidney disease stage IV Social History Lives with: Family Smoking Status: Never Smoker Family History Family History: Reviewed & Not Pertinent Parental Family History Reviewed: Yes Children Family History Reviewed: Yes Sibling(s) Family History Reviewed.: Yes Medication/Allergy Home Medications: Ammonium Lactate [Lac-Hydrin 12% Lotion 225Gm/Bottle] 1 applic TP BID 05/15/19 Calcitriol [Rocaltrol] 0.25 mcg PO ASDIR PRN 05/15/19 Ferrous Sulfate [Iron] 325 mg PO DAILY 05/15/19 Hydralazine HCl 100 mg PO TID 05/15/19 Insulin Glargine,Hum.rec.anlog [Lantus Insulin 100 Unit/1 ml 10 ml] 18 unit SUBCUT DAILY 05/15/19 Insulin Lispro [Humalog Kwikpen] 5 unit SQ TID 05/15/19 Metoprolol Succinate [Toprol XL 100 mg Tablet] 100 mg PO DAILY 05/15/19 Mupirocin [Bactroban 2% Ointment 22 gm] 1 applic TP TID 05/15/19 Nifedipine [Nifedipine ER] 120 mg PO DAILY 05/15/19 Sodium Bicarbonate [Sodium Bicarbonate 650 mg Tablet] 650 mg PO TID 05/15/19 Vit B Comp No.3/Folic/C/Biotin [Yasmine-Deena Rx Tablet] 1 each PO DAILY 05/15/19 Allergies/Adverse Reactions: No Known Allergies Allergy (Verified 04/02/17 12:59) Review of Systems Constitutional: PRESENT: fatigue Cardiovascular: ABSENT: as per HPI, chest pain, dyspnea on exertion, edema, orthropnea, palpitations, other Respiratory: ABSENT: as per HPI, cough, dyspnea, hemoptysis, sputum, other Gastrointestinal: ABSENT: as per HPI, abdominal pain, bloating, coffee ground emesis, constipation, diarrhea, dysphagia, heartburn, hematemesis, hematochezia, melena, nausea, vomiting, other Genitourinary: ABSENT: dysuria, hematuria Musculoskeletal: ABSENT: joint swelling Integumentary: ABSENT: rash, wounds Neurological: PRESENT: confusion Psychiatric: ABSENT: anxiety, depression, homidical ideation, suicidal ideation Endocrine: ABSENT: cold intolerance, heat intolerance, menstrual abnormalities, polydipsia, polyuria Hematologic/Lymphatic: ABSENT: easy bleeding, easy bruising, lymphadenopathy Physical Exam Vital Signs: Temp Pulse Resp BP Pulse Ox 98.5 F 86 16 169/81 H 98 05/15/19 11:34 05/15/19 14:00 05/15/19 11:34 05/15/19 11:34 05/15/19 11:34 Intake & Output 05/14/19 05/15/19 05/16/19 06:59 06:59 06:59 Intake Total 1530 Output Total 1975 Balance -445 Weight 74.843 kg 76.1 kg General appearance: PRESENT: no acute distress Eye exam: PRESENT: PERRLA Neck exam: PRESENT: full ROM Respiratory exam: PRESENT: clear to auscultation peter Cardiovascular exam: PRESENT: RRR, +S1, +S2 GI/Abdominal exam: PRESENT: normal bowel sounds, soft Rectal exam: PRESENT: deferred Neurological exam: PRESENT: alert, CN II-XII grossly intact Skin exam: PRESENT: dry, intact, warm Results Laboratory Results: 05/15/19 02:25 05/15/19 02:25 05/15/19 05/15/19 05/15/19 02:25 02:25 02:25 WBC 4.6 RBC 3.07 L Hgb 8.2 L Hct 25.8 L MCV 84 MCH 26.8 L MCHC 31.9 L RDW 14.7 H Plt Count 308 Seg Neutrophils % 60.8 Lymphocytes % 22.0 Monocytes % 14.7 H Eosinophils % 2.2 Basophils % 0.3 Absolute Neutrophils 2.8 Absolute Lymphocytes 1.0 Absolute Monocytes 0.7 Absolute Eosinophils 0.1 Absolute Basophils 0.0 Sodium 138.7 Potassium 4.3 Chloride 106 Carbon Dioxide 23 Anion Gap 10 BUN 54 H Creatinine 3.47 H Est GFR ( Amer) 21 L Est GFR (Non-Af Amer) 17 L Glucose 87 Lactic Acid Calcium 8.3 L Phosphorus Magnesium 2.7 H Total Bilirubin 0.2 AST 27 Alkaline Phosphatase 76 Ammonia Total Protein 6.1 L Albumin 3.3 L Amylase Lipase 17.5 L TSH 1.61 Free T4 1.31 Urine Color Urine Appearance Urine pH Ur Specific [place] Urine Protein Urine Glucose (UA) Urine Ketones Urine Blood Urine Nitrite Ur Leukocyte Esterase Urine WBC (Auto) Urine RBC (Auto) 05/15/19 05/15/19 05/15/19 02:25 03:20 09:15 WBC RBC Hgb Hct MCV MCH MCHC RDW Plt Count Seg Neutrophils % Lymphocytes % Monocytes % Eosinophils % Basophils % Absolute Neutrophils Absolute Lymphocytes Absolute Monocytes Absolute Eosinophils Absolute Basophils Sodium Potassium Chloride Carbon Dioxide Anion Gap BUN Creatinine Est GFR ( Amer) Est GFR (Non-Af Amer) Glucose Lactic Acid 2.1 1.9 Calcium Phosphorus Magnesium Total Bilirubin AST Alkaline Phosphatase Ammonia Total Protein Albumin Amylase Lipase TSH Free T4 Urine Color YELLOW Urine Appearance CLOUDY Urine pH 8.0 Ur Specific [place] 1.013 Urine Protein 100 H Urine Glucose (UA) 50 H Urine Ketones NEGATIVE Urine Blood NEGATIVE Urine Nitrite NEGATIVE Ur Leukocyte Esterase SMALL H Urine WBC (Auto) 5 Urine RBC (Auto) 1 05/15/19 05/15/19 05/15/19 09:15 09:15 09:15 WBC RBC Hgb Hct MCV MCH MCHC RDW Plt Count Seg Neutrophils % Lymphocytes % Monocytes % Eosinophils % Basophils % Absolute Neutrophils Absolute Lymphocytes Absolute Monocytes Absolute Eosinophils Absolute Basophils Sodium Potassium Chloride Carbon Dioxide Anion Gap BUN Creatinine Est GFR ( Amer) Est GFR (Non-Af Amer) Glucose Lactic Acid Calcium Phosphorus 4.0 Magnesium 2.4 H Total Bilirubin AST Alkaline Phosphatase Ammonia < 8.7 L Total Protein Albumin Amylase 55 Lipase 14.5 L TSH 1.19 Free T4 1.38 Urine Color Urine Appearance Urine pH Ur Specific [place] Urine Protein Urine Glucose (UA) Urine Ketones Urine Blood Urine Nitrite Ur Leukocyte Esterase Urine WBC (Auto) Urine RBC (Auto) 05/15/19 05/15/19 05/15/19 02:25 02:25 02:25 Creatine Kinase 253 H CK-MB (CK-2) 1.45 Troponin I 0.021 NT-Pro-B Natriuret Pep 1400 H 05/15/19 05/15/19 05/15/19 08:15 09:15 20:08 Creatine Kinase 347 H 336 H CK-MB (CK-2) 3.17 Troponin I 0.043 NT-Pro-B Natriuret Pep Impressions: Chest X-Ray 05/15/19 02:56 IMPRESSION: Pulmonary vascular congestion. Head CT 05/15/19 02:56 IMPRESSION: No acute findings. Assessment & Plan - Diagnosis (1) Hypoglycemia Is this a current diagnosis for this admission?: Yes Plan: Continue 5% dextrose (2) Chronic kidney disease, stage 4 (severe) Is this a current diagnosis for this admission?: Yes (3) Diabetes mellitus Qualifiers: Diabetes mellitus type: type 2 Diabetes mellitus tank terminal gauger insulin use: with senior living use Diabetes mellitus complication status: with kidney complications Diabetes mellitus complication detail: with chronic kidney disease Chronic kidney disease stage: stage 4 (severe) Qualified Code(s): E11.22 - Type 2 diabetes mellitus with diabetic chronic kidney disease; N18.4 - Chronic kidney disease, stage 4 (severe); Z79.4 - group home (current) use of insulin Is this a current diagnosis for this admission?: Yes (4) Hypothermia Qualifiers: Encounter type: initial encounter Qualified Code(s): T68.XXXA - Hypothermia, initial encounter Is this a current diagnosis for this admission?: Yes Plan: The exact cause is not clear, infection history rule out, empirically start antibiotic warm blanket etc.
[2019-05-15] MEDS: HYDRALAZINE HCL 50 MG TABLET PO SCH (21:22)
[2019-05-15] MEDS: INSULIN GLARGINE,HUM.REC.ANLOG 1,000 UNIT/10 ML VIAL SUBCUT SCH (21:31)
[2019-05-16 05:12] LABS: ABSOLUTE EOSINOPHILS # (AUTO) 0.1 10^3/uL (0.0-0.6); ABSOLUTE LYMPHOCYTES (AUTO) 1.4 10^3/uL (0.5-4.7); ABSOLUTE MONOCYTES (AUTO) 0.8 10^3/uL (0.1-1.4); ABSOLUTE NEUT (AUTO) 4.2 10^3/uL (1.7-8.2); BASOPHILS % (AUTO) 0.3 % (0-2); HEMATOCRIT 26.2 % (37.9-51.0); HEMOGLOBIN 8.6 g/dL (13.5-17.0); LYMPHOCYTES % (AUTO) 21.1 % (13-45); MEAN CORPUSCULAR HEMOGLOBIN 27.2 pg (27.0-33.4); MEAN CORPUSCULAR VOLUME 83 fl (80-97); MONOCYTES % (AUTO) 12.2 % (3-13); PLATELET COUNT 311 10^3/uL (150-450); RED BLOOD COUNT 3.18 10^6/uL (4.35-5.55); RED CELL DISTRIBUTION WIDTH 14.3 % (11.5-14.0); SEGMENTED NEUTROPHILS % (AUTO) 64.4 % (42-78); TOTAL CELLS COUNTED % (AUTO) 100 %; WHITE BLOOD COUNT 6.5 10^3/uL (4.0-10.5)
[2019-05-16] MEDS: HEPARIN SOD (PORCINE) 5,000 UNIT/ML 1 ML VIAL SUBCUT SCH ×2 (05:29→14:15)
[2019-05-16] MEDS: HYDRALAZINE HCL 50 MG TABLET PO SCH ×2 (05:29→14:15)
[2019-05-16 05:32] LABS: ANION GAP 8 (5-19); BLOOD UREA NITROGEN 46 mg/dL (7-20); CALCIUM 8.6 mg/dL (8.4-10.2); CARBON DIOXIDE 24 mmol/L (22-30); CHLORIDE 106 mmol/L (98-107); CHOLESTEROL 125.32 mg/dL (0-200); GLUCOSE 236 mg/dL (75-110); POTASSIUM 5.6 mmol/L (3.6-5.0); TRIGLYCERIDES 95 mg/dL (<150)
[2019-05-16 05:42] LABS: DIRECT LDL 72 mg/dL (<100)
[2019-05-16] MEDS: FERROUS SULFATE 325 MG TABLET PO SCH (09:03)
[2019-05-16] MEDS: INSULIN LISPRO 100 UNIT/ML 3 ML VIAL SUBCUT SCH ×2 (09:03→11:16)
[2019-05-16] MEDS: INSULIN GLARGINE,HUM.REC.ANLOG 1,000 UNIT/10 ML VIAL SUBCUT SCH (09:03)
[2019-05-16] MEDS: CALCITRIOL 0.25 MCG CAPSULE PO SCH (09:03)
[2019-05-16] MEDS: SODIUM BICARBONATE 650 MG TABLET PO SCH ×2 (09:04→14:15)
[2019-05-16] MEDS: CEFTRIAXONE SODIUM 1,000 MG in DEXTROSE 5%-WATER 50 ML IV SCH (09:04)
[2019-05-16] MEDS ORDERED: NIFEDIPINE 30 MG TAB.ER.24 PO SCH (10:00)
[2019-05-16] MEDS ORDERED: METOPROLOL SUCCINATE 50 MG TAB.SR.24H PO SCH (10:00)
[2019-05-16 15:16] VITALS: BP 132/66
--- NOTE | 2019-05-16 17:35 | PDOC DISCHARGE SUMMARY ---
General - Admit/Disc Date/PCP Admission Date/Primary Care Provider: 05/15/19 06:26 ADY WADE MD Discharge Date: 05/16/19 - Discharge Diagnosis (1) Hypoglycemia Is this a current diagnosis for this admission?: Yes (2) Chronic kidney disease, stage 4 (severe) Is this a current diagnosis for this admission?: Yes (3) Diabetes mellitus Is this a current diagnosis for this admission?: Yes (4) Hypothermia Is this a current diagnosis for this admission?: Yes - Additional Information Discharge Diet: Diabetic Discharge Activity: Activity As Tolerated, Balance Activity w/Rest Home Medications: RX: Ammonium Lactate [Lac-Hydrin 12% Lotion 225Gm/Bottle] 1 applic TP BID 05/15/19 RX: Calcitriol [Rocaltrol] 0.25 mcg PO ASDIR PRN 05/15/19 RX: Ferrous Sulfate [Iron] 325 mg PO DAILY 05/15/19 RX: Hydralazine HCl 100 mg PO TID 05/15/19 RX: Insulin Lispro [Humalog Kwikpen U-200] 5 unit SQ TID 05/15/19 RX: Metoprolol Succinate [Toprol XL 100 mg Tablet] 100 mg PO DAILY 05/15/19 RX: Mupirocin [Bactroban 2% Ointment 22 gm] 1 applic TP TID 05/15/19 RX: Nifedipine [Nifedipine ER] 120 mg PO DAILY 05/15/19 RX: Sodium Bicarbonate [Sodium Bicarbonate 650 mg Tablet] 650 mg PO TID 05/15/19 RX: Vit B Comp No.3/Folic/C/Biotin [Yasmine-Deena Rx Tablet] 1 each PO DAILY 05/15/19 RX: Insulin Glargine,Hum.rec.anlog [Lantus Insulin 100 Unit/1 ml 10 ml] 10 unit SUBCUT DAILY #0 05/16/19 History of Present Illness History of Present Illness: VERONICA GÓMEZ is a 73 year old male, He was brought to the emergency room for evaluation of confusion, he was found to be hypoglycemic, the POC Accu-Chek was in the low 30s he was treated with 10% dextrose, despite treatment he remained confused in the emergency room. He also was found to be hypothermic, the rectal temperature was 89, he has multiple comorbid condition including diabetes mellitus complicated with chronic kidney disease stage IV, history of prostate cancer in remission, hypertension. Because of the persistent hypoglycemia and also the hypothymia hospital admission was advised. Patient is admitted into the intermediate care unit there is no particular source for sepsis, the etiology of the hypothermia is not particularly clear not sure if is related to the hypoglycemia or if this is from infection, there is no evidence of pneumonia, uses condom catheter at home because of chronic urinary incontinence, this could also be a factor in the etiology of the potential infection.Patient has been very uncooperative with the nurses, refusing care, refusing medication refusing vital signs check I saw him on the floor is alert but his behavior is out of character advised him to stay at least for 24 hours because of this severe hypothymia not regularly sure the etiology of that Hospital Course Hospital Course: Patient was admitted for the management of hypoglycemia, he also had hypothermia the etiology of the hypothermia was not clear. He was treated conservatively the insulin was held, he had warm blanket temperature improved, blood culture, urine culture did not yield any bacterial growth. Patient was very anxious about going home, there was no active disease process ongoing at this time. The medication was adjusted, the hypoglycemia is most likely from the chronic kidney disease stage IV ,he is advised to skip the evening dose of Levemir he will take only Levemir in the morning. Physical Exam Vital Signs: Temp Pulse Resp BP Pulse Ox 98.2 F 93 16 132/66 H 100 05/16/19 15:59 05/16/19 15:59 05/16/19 15:59 05/16/19 15:59 05/16/19 15:59 Intake & Output 05/15/19 05/16/19 05/17/19 06:59 06:59 06:59 Intake Total 1530 237 Output Total 2975 200 Balance -1445 37 Weight 74.843 kg 76.6 kg General appearance: PRESENT: no acute distress Head exam: PRESENT: atraumatic, normocephalic Eye exam: PRESENT: PERRLA Ear exam: PRESENT: normal external ear exam Mouth exam: PRESENT: moist, tongue midline Neck exam: PRESENT: full ROM Respiratory exam: PRESENT: clear to auscultation peter Cardiovascular exam: PRESENT: RRR, +S1, +S2 Pulses: PRESENT: normal dorsalis pedis pul, +2 pedal pulses bilateral Vascular exam: PRESENT: normal capillary refill GI/Abdominal exam: PRESENT: normal bowel sounds, soft Rectal exam: PRESENT: deferred Neurological exam: PRESENT: alert, CN II-XII grossly intact Psychiatric exam: PRESENT: appropriate affect, normal mood Skin exam: PRESENT: dry, intact, warm Results Laboratory Results: 05/16/19 04:11 05/16/19 04:11 05/16/19 05/16/19 04:11 04:11 WBC 6.5 RBC 3.18 L Hgb 8.6 L Hct 26.2 L MCV 83 MCH 27.2 MCHC 33.0 RDW 14.3 H Plt Count 311 Seg Neutrophils % 64.4 Lymphocytes % 21.1 Monocytes % 12.2 Eosinophils % 2.0 Basophils % 0.3 Absolute Neutrophils 4.2 Absolute Lymphocytes 1.4 Absolute Monocytes 0.8 Absolute Eosinophils 0.1 Absolute Basophils 0.0 Sodium 137.8 Potassium 5.6 H Chloride 106 Carbon Dioxide 24 Anion Gap 8 BUN 46 H Creatinine 3.50 H Est GFR ( Amer) 21 L Est GFR (Non-Af Amer) 17 L Glucose 236 H Calcium 8.6 Triglycerides 95 Cholesterol 125.32 LDL Cholesterol Direct 72 VLDL Cholesterol 19.0 HDL Cholesterol 37 L 05/15/19 05/15/19 05/15/19 02:25 02:25 02:25 Creatine Kinase 253 H CK-MB (CK-2) 1.45 Troponin I 0.021 NT-Pro-B Natriuret Pep 1400 H 05/15/19 05/15/19 05/15/19 08:15 09:15 20:08 Creatine Kinase 347 H 336 H CK-MB (CK-2) 3.17 Troponin I 0.043 NT-Pro-B Natriuret Pep 05/15/19 20:08 Creatine Kinase CK-MB (CK-2) 2.36 Troponin I 0.055 NT-Pro-B Natriuret Pep Impressions: Chest X-Ray 05/15/19 02:56 IMPRESSION: Pulmonary vascular congestion. Head CT 05/15/19 02:56 IMPRESSION: No acute findings. Qualifiers - * PATIENT BEING DISCHARGED WITH ANY OF THE FOLLOWING DIAGNOSIS: No VTE patient discharged on overlapping Therapy?: No Reason(s) for not prescribing Overlap Therapy:: Not indicated Stroke Pt being discharged on Anti-thrombolytic therapy?: No Reason(s) for not prescribing Anti-thrombolytic therapy:: Not indicated Stroke Pt being discharged on Anti-coagulation therapy?: No Reason(s) for not prescribing Anti-coagulation therapy:: Not indicated Stroke Pt being discharged on Statins?: No Reason(s) for not prescribing Statins therapy:: Not indicated [place] Pt being discharged on Aspirin therapy?: No Reason(s) for not prescribing Aspirin therapy:: Not indicated [place] Pt being discharged on Statins?: No Reason(s) for not prescribing Statin therapy:: Not indicated [place] Pt discharged ACEI/ARBS?: No Reason(s) for not prescribing ACEI/ARBS:: Not indicated Acute Heart Failure - Is this a Heart Failure Patient?: No 3. Anticoagulant therapy for permanect/persistent/paraoxysmal Afib or Aflutter: N/A
== END 2019-05-16 17:21 | disposition home or self-care (01) ==
LOC: ER 02:09 → EH 06:26 → INTOOBSV 06:26 → 3W 07:52
PROVIDERS: ADMIT Internal Medicine; ATTEND Internal Medicine
DX: E11.649 Type 2 diabetes mellitus with hypoglycemia without coma (principal); E11.22 Type 2 diabetes mellitus with diabetic chronic kidney disease; E11.51 Type 2 diabetes mellitus with diabetic peripheral angiopathy without gangrene; I12.9 Hypertensive chronic kidney disease with stage 1 through stage 4 chronic kidney disease, or unspecified chronic kidney disease; N18.4 Chronic kidney disease, stage 4 (severe); T68.XXXA Hypothermia, initial encounter; X58.XXXA Exposure to other specified factors, initial encounter; N39.498 Other specified urinary incontinence; R41.0 Disorientation, unspecified; I25.10 Atherosclerotic heart disease of native coronary artery without angina pectoris; R46.89 Other symptoms and signs involving appearance and behavior; I48.91 Unspecified atrial fibrillation; J98.11 Atelectasis; D64.9 Anemia, unspecified; I95.9 Hypotension, unspecified; R00.1 Bradycardia, unspecified; Z85.46 Personal history of malignant neoplasm of prostate; Z79.4 Long term (current) use of insulin; Z79.899 Other long term (current) drug therapy
CPT/HCPCS: 93005; 99291; 96375; 96365; 36415 ×2; 87040; 87086; 84439; 82553; 82962; 82140; 82150; 82550; 83690; 83735; 84100; 84443; 85025 ×2; 85610; 85730; 87088; 80048; 80053; 81001; 84484; 87186; 80307; 83036; 83605; 80061; 83880; 71045; 70450; 93010; G0378 ×2; J3490; J0696; J7060; J7042; J2543

== ENCOUNTER → 2019-08-11 | Outpatient (CLI) | payer MEDICARE ==
[2019-08-11 09:05] LABS: ABSOLUTE EOSINOPHILS # (AUTO) 0.2 10^3/uL (0.0-0.6); ABSOLUTE LYMPHOCYTES (AUTO) 2.7 10^3/uL (0.5-4.7); ABSOLUTE MONOCYTES (AUTO) 0.5 10^3/uL (0.1-1.4); BASOPHILS % (AUTO) 0.5 % (0-2); EOSINOPHILS % (AUTO) 3.5 % (0-6); HEMATOCRIT 32.2 % (37.9-51.0); HEMOGLOBIN 10.3 g/dL (13.5-17.0); LYMPHOCYTES % (AUTO) 41.8 % (13-45); MEAN CORPUSCULAR HEMOGLOBIN 26.8 pg (27.0-33.4); MEAN CORPUSCULAR VOLUME 84 fl (80-97); MONOCYTES % (AUTO) 8.1 % (3-13); PLATELET COUNT 377 10^3/uL (150-450); RED BLOOD COUNT 3.84 10^6/uL (4.35-5.55); RED CELL DISTRIBUTION WIDTH 14.7 % (11.5-14.0); SEGMENTED NEUTROPHILS % (AUTO) 46.1 % (42-78); TOTAL CELLS COUNTED % (AUTO) 100 %; WHITE BLOOD COUNT 6.5 10^3/uL (4.0-10.5)
[2019-08-11 09:18] LABS: APPEARANCE,URINE CLEAR; BILIRUBIN,URINE NEGATIVE (NEGATIVE); COLOR,URINE YELLOW; GLUCOSE, URINE NEGATIVE (NEGATIVE); KETONES,URINE NEGATIVE (NEGATIVE); LEUKOCYTE ESTERASE,URINE SMALL (NEGATIVE); NITRITE,URINE NEGATIVE (NEGATIVE); PROTEIN,URINE 100 mg/dL (NEGATIVE); URINE SPECIFIC GRAVITY 1.015; UROBILINOGEN,URINE NEGATIVE mg/dL (<2.0)
[2019-08-11 09:38] LABS: ALBUMIN 4.5 g/dL (3.5-5.0); ANION GAP 13 (5-19); BLOOD UREA NITROGEN 44 mg/dL (7-20); CALCIUM 9.4 mg/dL (8.4-10.2); CARBON DIOXIDE 23 mmol/L (22-30); CHLORIDE 100 mmol/L (98-107); GLUCOSE 166 mg/dL (75-110); PHOSPHORUS 5.4 mg/dL (2.5-4.5)
[2019-08-11 09:51] LABS: UR PRO/CREAT RATIO RESULT 0.6 mg/mg (0.0-0.2); URINE CREATININE 163.8 mg/dL (22-328); URINE PROTEIN 94.9 mg/dL (<12)
== END ==
LOC: LAB 08:34
PROVIDERS: ATTEND Internal Medicine Nephrology
DX: I12.9 Hypertensive chronic kidney disease with stage 1 through stage 4 chronic kidney disease, or unspecified chronic kidney disease (principal); N18.4 Chronic kidney disease, stage 4 (severe); R80.9 Proteinuria, unspecified; N25.0 Renal osteodystrophy; E87.2 Acidosis
CPT/HCPCS: 36415; 80069; 81001; 82570; 83970; 84156; 85025; 87086; 87088